=== PATIENT | female | born 1990 | race Hispanic/Latino ===

== ENCOUNTER 2018-07-04 02:47 | Emergency (ER) | payer BC ==
[2018-07-04 02:58] VITALS: RESP 16; O2SAT 100
[2018-07-04] MEDS ORDERED: Sodium Chloride 0.9% 1,000 ML IV STA ×2 (03:16→03:19)
--- NOTE | 2018-07-04 03:35 | ED PDOC ---
Syncope/Near Syncope/Dizziness Time Seen by Provider: 07/04/18 03:01 Chief Complaint (Nursing): Syncope Chief Complaint (Provider): Syncope History Per: Patient History/Exam Limitations: no limitations Number Of Syncopal Episodes: 1 Additional Complaint(s): 27 y/o female with no significant PMHx presents to the ED for evaluation s/p syncope. Patient reports she had been experiencing pelvic discomfort for a couple of hours. She states that she went to the bathroom to try and urinate but was unable to do so. Subsequently patient developed very dry mouth and then recalls that she was going to get water but doesn't remember getting up. Patient's boyfriend reports he heard a loud thud and found patient fallen on the floor. Patient was alert at that time but there may have possibly been a few seconds of loss of consciousness. She denies nausea, vomiting, diaphoresis. At present, patient has some intermittent pelvic pain but it is not severe. She also reports having a hematoma to the back of her head. Patient takes iron because she follows a vegetarian diet. She also has an IUD that is around 1.5 years old. Past Medical History Reviewed: Historical Data, Nursing Documentation, Vital Signs Vital Signs: Last Vital Signs Temp 98.0 F 07/04/18 02:54 Pulse 63 07/04/18 02:54 Resp 16 07/04/18 02:54 BP 101/64 07/04/18 02:54 Pulse Ox 100 07/04/18 02:54 - Medical History PMH: No Chronic Diseases - Surgical History Surgical History: No Surg Hx - Family History Family History: States: Unknown Family Hx - Social History Current smoker - smoking cessation education provided: No Alcohol: None Drugs: Denies - Allergies Allergies/Adverse Reactions: Allergies Allergy/AdvReac Type Severity Reaction Status Date / Time No Known Allergies Allergy Verified 07/04/18 02:55 Review of Systems ROS Statement: Except As Marked, All Systems Reviewed And Found Negative Constitutional: Negative for: Sweats Gastrointestinal: Negative for: Nausea, Vomiting Musculoskeletal: Positive for: Other (Pelvic pain) Neurological: Positive for: Other (Syncope) Physical Exam - Reviewed Nursing Documentation Reviewed: Yes Vital Signs Reviewed: Yes - Physical Exam Appears: Positive for: Well, Non-toxic, No Acute Distress Head Exam: Negative for: ATRAUMATIC (hematoma to left occipital area) Skin: Positive for: Normal Color, Warm, DRY Eye Exam: Positive for: EOMI, Normal appearance, PERRL ENT: Positive for: Normal ENT Inspection Neck: Positive for: Normal, Painless ROM Cardiovascular/Chest: Positive for: Regular Rate, Rhythm. Negative for: Murmur Respiratory: Positive for: Normal Breath Sounds. Negative for: Respiratory Distress Gastrointestinal/Abdominal: Positive for: Normal Exam, Soft. Negative for: Tenderness Back: Positive for: Normal Inspection Extremity: Positive for: Normal ROM. Negative for: Pedal Edema, Deformity Neurological/Psych: Positive for: Awake, Alert, Normal Tone. Negative for: Motor/Sensory Deficits - Laboratory Results Result Diagrams: 07/04/18 03:41 07/04/18 03:41 - ECG O2 Sat by Pulse Oximetry: 100 (RA) Pulse Ox Interpretation: Normal Medical Decision Making Medical Decision Making: Time: 03:15 Impression: 27 y/o with syncopal event, likely vasovagal, in setting of pelvic pain Initial Plan: * Labs * US Transvag * CT Head 04:37 US Transvag Findings: Unremarkable, anteverted uterus. Endometrial thickness 8 mm. Normal cervical length measuring 3.4 cm. Intrauterine device is in good position. Normal ovaries. Moderate amount of free fluid is noted in the pelvic cul-de-sac. Impression: Moderate amount of free fluid is noted in the pelvic cul-de-sac. 04:42 CT Head FINDINGS: 3.5x2.2 cm uncomplicated left temporal arachnoid cyst. Normal size of the ventricles and extra-axial spaces for the patient's age. Normal white matter tracts of the supratentorial brain. Normal basal ganglia and thalami. Normal brainstem. Normal cerebellum. There is no demonstrated extra-axial, intraparenchymal, or intraventricular hemorrhage. There are no findings of an acute ischemic infarction. Normal calvarium. There is no demonstrated fracture. Normal soft tissue structures. Normal visualized paranasal sinuses. IMPRESSION: 3.5x2.2 cm uncomplicated left temporal arachnoid cyst. 05:05 Labs reviewed no clinically significant abnormalities. Though no ovarian cyst was noted in US the free fluid is likely from a ruptured cyst; this was explained to patient. Patient was also informed of incidental finding on CT. Patient will follow up with her PMD in 1-2 days. Head injury instructions provided. Diagnosis is vasovagal syncope and ovarian cyst. Patient is stable for discharge. Scribe Attestation: Documented by Vahe Shearer, acting as a scribe Anyi Aguero MD. Provider Scribe Attestation: All medical record entries made by the Scribe were at my direction and personally dictated by me. I have reviewed the chart and agree that the record accurately reflects my personal performance of the history, physical exam, medical decision making, and the department course for this patient. I have also personally directed, reviewed, and agree with the discharge instructions and disposition. Disposition - Clinical Impression Clinical Impression: Vasovagal syncope, Ovarian cyst - Disposition Disposition: Routine/Home Disposition Time: 05:05 Additional Instructions: CECELIA ENGLISH, thank you for letting us take care of you today. Your provider was Delmer Aguero MD and you were treated for EVAL OF FALL, HEAD PAIN. The emergency medical care you received today was directed at your acute symptoms. If you were prescribed any medication, please fill it and take as directed. It may take several days for your symptoms to resolve. Return to the Emergency Department if your symptoms worsen, do not improve, or if you have any other problems. Please contact your doctor or call one of the physicians/clinics you have been referred to that are listed on the Patient Visit Information form that is included in your discharge packet. Bring any paperwork you were given at discharge with you along with any medications you are taking to your follow up visit. Our treatment cannot replace ongoing medical care by a primary care provider outside of the emergency department. Thank you for allowing the [facility] team to be part of your care today. If you had an X-Ray or CT scan: A Radiologist will review the ED reading if any change in treatment is needed we will contact you. If you had a blood, urine, or wound culture: It will take several days for the results, if any change in treatment is needed we will contact you. If you had an STI test: It will take 48 hours for the results. Please call after 1 week if you have not heard back. Instructions: Ovarian Cysts, Syncope (Fainting), Vasovagal Response Forms: [facility] [employer] (Uzbek)
[2018-07-04 03:45] LABS: BASO % 0.3 % (0.0-2.0); EOS # 0.1 K/uL (0.0-0.7); EOS % 1.3 % (0.0-4.0); LYMPH # 2.3 K/uL (1.0-4.3); LYMPH % 31.1 % (20.0-40.0); MEAN CELL VOLUME 90.6 fl (81.0-99.0); MEAN CORPUSCULAR HEMOGLOBIN 31.1 pg (27.0-31.0); MEAN CORPUSCULAR HGB CONC 34.3 g/dL (33.0-37.0); MEAN PLATELET VOLUME 8.4 fl (7.2-11.7); MONO # 0.5 K/uL (0.0-0.8); MONO % 6.8 % (0.0-10.0); NEUT # 4.5 K/uL (1.8-7.0); NEUT % 60.5 % (50.0-75.0); NRBC % 0.1 % (0.0-0.0); RBC 4.19 Mil/uL (3.80-5.20); RED CELL DISTRIBUTION WIDTH 12.5 % (11.5-14.5); WHITE BLOOD COUNT 7.4 K/uL (4.8-10.8)
[2018-07-04 03:53] LABS: ALB/GLOB RATIO 1.1 (1.0-2.1); ALBUMIN 3.5 g/dL (3.5-5.0); ALT/SGPT 17 U/L (9-52); AST/SGOT 21 U/L (14-36); BLOOD UREA NITROGEN 7 mg/dl (7-17); GFR NON-AFRICAN AMERICAN > 60
[2018-07-04 04:47] VITALS: BP 101/69; PULSE 84; TEMP 97.9
[2018-07-04 04:47] LABS: SQUAMOUS EPITHIAL < 1 /hpf (0-5); URINE BACTERIA RARE (<OCC); URINE BILIRUBIN NEGATIVE (NEGATIVE); URINE BLOOD NEGATIVE (NEGATIVE); URINE CLARITY SLIGHTY-CLOUDY (Clear); URINE COLOR YELLOW (YELLOW); URINE GLUCOSE (UA) NEG (NEGATIVE); URINE HYALINE CAST 0-2 /hpf (0-2); URINE LEUKOCYTE ESTERASE NEG Leu/uL (Negative); URINE PROTEIN NEGATIVE (NEGATIVE); URINE UROBILINOGEN 0.2-1.0 mg/dL (0.2-1.0)
--- NOTE | 2018-07-04 07:54 | CARD ---
APPROVED REPORT Date of service: 07/04/2018 EKG Measurement Heart [id number] <Conclusion> Normal sinus rhythm Normal ECG
--- NOTE | 2018-07-04 08:50 | CT ---
Date of service: 07/04/2018 PROCEDURE: CT HEAD WITHOUT CONTRAST. HISTORY: head injury COMPARISON: None available. TECHNIQUE: Axial computed tomography images were obtained through the head/brain without intravenous contrast. Radiation dose: Total exam DLP = 801.41 mGy-cm. This CT exam was performed using one or more of the following dose reduction techniques: Automated exposure control, adjustment of the mA and/or kV according to patient size, and/or use of iterative reconstruction technique. FINDINGS: HEMORRHAGE: No intracranial hemorrhage. BRAIN: Whitfield-white matter differentiation is preserved. There is a 1.8 x 3.7 cm CSF density lesion in the left anterior middle cranial fossa. There is mild mass effect on the anterior temporal lobe. No extra-axial fluid collection. There is no territorial infarction. The midline sagittal structures are normal. VENTRICLES: The ventricles are normal in size, shape and configuration. CALVARIUM: There is no calvarial fracture. There is a small left parietal scalp hematoma. PARANASAL SINUSES: Predominantly clear. MASTOID AIR CELLS: Predominantly clear. OTHER FINDINGS: None. IMPRESSION: No acute intracranial abnormality. Small left parietal scalp hematoma 1.8 x 3.7 cm presumable arachnoid cyst in the left anterior middle cranial fossa with mild mass effect on the left temporal lobe. A preliminary report was provided by [facility].
--- NOTE | 2018-07-04 09:51 | US ---
Date of service: 07/04/2018 HISTORY: Pelvic pain hx iud COMPARISON: None available. TECHNIQUE: Transvaginal pelvic ultrasound was performed. FINDINGS: UTERUS: Measures 8.3 x 3.9 x 4.0 cm. Anteverted and normal in size. No fibroid or other mass lesion seen. ENDOMETRIUM: Measures 8.0 mm in diameter. An IUD remains in satisfactory position. CERVIX: No cervical abnormality identified. RIGHT OVARY: Measures 2.9 x 1.8 x 1.4 cm. No solid mass. Normal flow. LEFT OVARY: Measures 2.1 x 1.3 x 1.3 cm. No solid mass. Normal flow. FREE FLUID: There is moderate amount of simple free fluid in the pelvis of uncertain etiology. OTHER FINDINGS: None. IMPRESSION: IUD remains in customary position. No acute findings. Moderate amount of simple free fluid in the pelvis of uncertain etiology. If clinically indicated correlation with CT scan of the abdomen and pelvis may be performed for further evaluation. A preliminary report was provided by [facility]. The final report is tagged to the PA review folder.
== END 2018-07-04 05:20 | disposition home or self-care (01) ==
LOC: H.ER 02:47
DX: R55 Syncope and collapse (principal); N83.202 Unspecified ovarian cyst, left side
CPT/HCPCS: 70450; 76830; 80053; 81003; 81025; 82948; 83605; 84443; 85025; 93005; 96360; 99285; J7030